=== PATIENT | male | born 1975 | race Two or more races ===

== ENCOUNTER 2023-01-07 12:45 | Emergency (ER) | payer SELFPAY ==
[~2023-01-07] VITALS: Ht 188 cm; Wt 121.0 kg
[2023-01-07] MEDS ORDERED: KETOROLAC 60MG/2ML VIAL IM STA (13:48)
[2023-01-07 14:24] LABS: BASOPHILS % 0.5 % (0.0-2.0); EOSINOPHILS % 0.3 % (0.0-5.0); HEMATOCRIT. 42.9 % (42.0-52.0); HEMOGLOBIN. 14.5 g/dL (14.0-18.0); LYMPHOCYTES % 26.2 % (20.0-50.0); MEAN CORPUSCULAR HEMOGLOBIN 28.7 pg (28.0-32.0); MEAN CORPUSCULAR VOLUME 85.3 fL (80.0-94.0); MEAN PLATELET VOLUME 6.6 fl (7.4-10.4); MONOCYTES % 7.2 % (2.0-8.0); NEUTROPHILS % 65.8 % (40.0-76.0); PLATELET 319 x1000/uL (130-400); RED BLOOD CELL COUNT 5.03 mill/uL (4.7-6.1); RED CELL DISTRIBUTION WIDTH 15.3 % (11.6-14.6)
[2023-01-07 14:34] LABS: CHLORIDE 102 mEq/L (98-107)
[2023-01-07] MEDS ORDERED: HYDROCODONE/ACETAMINOPHEN 5/325MG TABLET PO STA (15:51)
[2023-01-07] MEDS ORDERED: KETOROLAC 60MG/2ML VIAL IM SCH (16:15)
[2023-01-07 16:50] LABS: CLARITY URINE CLEAR (CLEAR); COLOR URINE YELLOW (YELLOW); KETONES URINE NEGATIVE (NEGATIVE); LEUKOCYTE ESTERASE URINE 1+ (NEGATIVE); NITRITE URINE NEGATIVE (NEGATIVE); OCCULT BLOOD URINE NEGATIVE (NEGATIVE); PH URINE 6.5 (4.5-8.0); PROTEIN URINE NEGATIVE (NEGATIVE); SPECIFIC GRAVITY URINE 1.023 (1.005-1.030)
[2023-01-07] MEDS ORDERED: LIDOCAINE HCL 1% 20ML VIAL (Pyxis) INJ INFIL SCH (17:00)
[2023-01-07] MEDS ORDERED: CEFTRIAXONE SODIUM 1 G/VIAL IM SCH (17:00)
[2023-01-07] MEDS ORDERED: HYDR-4001 PO (17:08)
[2023-01-07] MEDS ORDERED: NAPR-681 PO (17:08)
[2023-01-07] MEDS ORDERED: SULF1TAB48 MT (17:08)
[2023-01-07 17:35] VITALS: BP 128/78
== END 2023-01-07 17:36 | disposition home or self-care (01) ==
LOC: ER 12:56
DX: N30.90 Cystitis, unspecified without hematuria (principal); K40.90 Unilateral inguinal hernia, without obstruction or gangrene, not specified as recurrent
CPT/HCPCS: 36415; 74176; 76870; 80053; 81003; 83690; 85025; 87086; 93976; 96372; 99285; J0696; J1885; J3490

== ENCOUNTER 2023-05-20 11:00 | Emergency (ER) | payer SELFPAY ==
[~2023-05-20] VITALS: Ht 182.9 cm; Wt 113.0 kg
[~2023-05-20 11:00] MED LIST: HYDR-4001 PO; NAPR-681 PO; SULF1TAB48 MT
[2023-05-20 11:02] VITALS: TEMP 98.5; O2SAT 99
[2023-05-20] MEDS ORDERED: OXYC-100 MT ×2 (11:29→11:38)
[2023-05-20] MEDS ORDERED: POLY17PO3 MT (11:29)
[2023-05-20] MEDS ORDERED: P50 MT (11:29)
[2023-05-20 11:30] VITALS: BP 128/70; PULSE 77; RESP 20
[2023-05-20] MEDS ORDERED: PREDNISONE 20MG TABLET PO ONE (11:30)
[2023-05-20] MEDS ORDERED: OXYCODONE HCL/ACETAMINOPHEN 5/325MG TABLET PO ONE (11:30)
== END 2023-05-20 11:45 | disposition home or self-care (01) ==
LOC: ER 11:08
DX: M54.50 Low back pain, unspecified (principal); K45.8 Other specified abdominal hernia without obstruction or gangrene
CPT/HCPCS: 99283; J7512